=== PATIENT | female | born 1975 | race Caucasian/White ===

== ENCOUNTER 2018-05-27 13:11 | Emergency (ER) | payer BC, OTHER ==
[2018-05-27] MEDS: ACETAMINOPHEN 500 MG TAB PO (14:08)
== END 2018-05-27 16:22 | disposition home or self-care (01) ==
LOC: FTE 13:11
DX: H61.22 Impacted cerumen, left ear (principal); M26.622 Arthralgia of left temporomandibular joint; R40.2412 Glasgow coma scale score 13-15, at arrival to emergency department
CPT/HCPCS: 69210; 99283-25

== ENCOUNTER 2019-04-19 08:43 | Emergency (ER) | payer BC | END 2019-04-19 09:49 | disposition home or self-care (01) | LOC: FTE 08:43 | DX: S80.862A Insect bite (nonvenomous), left lower leg, initial encounter (principal); L08.9 Local infection of the skin and subcutaneous tissue, unspecified; W57.XXXA Bitten or stung by nonvenomous insect and other nonvenomous arthropods, initial encounter; Y92.9 Unspecified place or not applicable | CPT/HCPCS: 99283 ==